=== PATIENT | female | born 1985 | race African-American/Black ===

== ENCOUNTER 2018-06-10 13:13 | Outpatient (CLI) ==
[2015-04-16 07:56] VITALS: BMI 36.3
== END 2018-06-10 13:14 | disposition home or self-care (01) ==
LOC: LAB 13:13
PROVIDERS: ATTEND Nurse Practitioner
DX: E11.65 Type 2 diabetes mellitus with hyperglycemia (principal); E55.9 Vitamin D deficiency, unspecified; R53.83 Other fatigue
CPT/HCPCS: 36415; 80053; 82043; 82306; 83036; 84443; 85025

== ENCOUNTER 2018-08-11 10:11 | Outpatient (CLI) ==
[2015-04-16 07:56] VITALS: BMI 36.3
== END 2018-08-11 10:12 | disposition home or self-care (01) ==
LOC: LAB 10:11
PROVIDERS: ATTEND Nurse Practitioner Family
DX: E11.9 Type 2 diabetes mellitus without complications (principal); Z13.220 Encounter for screening for lipoid disorders; R53.83 Other fatigue; E55.9 Vitamin D deficiency, unspecified
CPT/HCPCS: 36415; 80053; 80061; 82306; 83036; 84443; 85025

== ENCOUNTER 2018-10-28 08:47 | Outpatient (CLI) ==
[2015-04-16 07:56] VITALS: BMI 36.3
== END 2018-10-28 08:48 | disposition home or self-care (01) ==
LOC: LAB 08:47
PROVIDERS: ATTEND Nurse Practitioner
DX: E11.65 Type 2 diabetes mellitus with hyperglycemia (principal); E55.9 Vitamin D deficiency, unspecified
CPT/HCPCS: 36415; 80048; 80061; 82043; 82306; 83036